=== PATIENT | male | born 1990 | race Caucasian/White ===

== ENCOUNTER 2019-06-25 16:26 | Outpatient (CLI) | payer OTHER, SELFPAY ==
--- NOTE | ~2019-06-25 | XR_ITS ---
EXAMINATION: XR lumbar spine 6V w bending DATE: 06/25/2019 17:05 INDICATION: Low back pain. TECHNIQUE: Anteroposterior, lateral in neutral, flexion and extension, and bilateral oblique views of the lumbar spine, and cone-down lateral view of the lumbosacral junction were obtained. COMPARISON: None. FINDINGS: Alignment is normal in the neutral and flexed standing positions. There is 3 mm retrolisthesis of L2 on L3 with extension. Minimal likely physiologic anterior wedging at T12 and L1. Disc heights are nor mal. No pars interarticularis defects. Mild lumbar facet osteoarthritis on the right at T12-L1 throug h L2-L3 and on the left at T12-L1, 1 L2, L3-L4 and L4-L5. Sacrum and bilateral sacroiliac joints are unremarkable. IMPRESSION: 1. Mild lumbar spondylosis and development of 3 mm retrolisthesis of L2 on L3 with extension. Reviewed, dictated and finalized at location A. IMPRESSION: 1. Mild lumbar spondylosis and development of 3 mm retrolisthesis of L2 on L3 w ith extension.
== END 2019-06-25 16:27 | disposition home or self-care (01) ==
PROVIDERS: PCP Internal Medicine; Visit Provider Physician Assistant
DX: M54.5 Low back pain (principal); M47.816 Spondylosis without myelopathy or radiculopathy, lumbar region; M43.16 Spondylolisthesis, lumbar region
CPT/HCPCS: 72114

== ENCOUNTER 2019-10-05 11:32 | Emergency (ER) | payer OTHER, SELFPAY ==
--- NOTE | ~2019-10-05 | XR_ITS ---
EXAMINATION: XR chest 2V DATE: 10/05/2019 11:59 INDICATION: Cough TECHNIQUE: PA and lateral views of the chest are obtained. COMPARISON: 07/26/2010 FINDINGS: The lungs are free of acute opacities. There is no pleural effusion or pneumothorax. The ca rdiomediastinal silhouette is normal. The visualized bones and soft tissues are unremarkable. IMPRESSION: 1. No acute cardiopulmonary abnormality. Reviewed, dictated and finalized at location A.
[2019-10-05 11:44] VITALS: BP 149/97; PULSE 87; RESP 12; TEMP 36.6; O2SAT 100
--- NOTE | 2019-10-05 11:47 | ED.URI ---
HPI - URI/Sore Throat General Chief Complaint: Upper Respiratory Infection Stated Complaint: cough/runny nose Source: patient Mode of arrival: ambulatory Limitations: no limitations History of Present Illness HPI Narrative: 29-year-old male presents to urgent care with complaints of productive cough, intermittent shortness of breath, wheezing, runny nose nasal congestion for the past 2 weeks. Patient reports that he did have a negative COVID test 2 weeks ago at onset of symptoms. Patient is a smoker. Patient denies sick contacts. Patient denies recent travel. Patient denies fever, body aches, chills, nausea, vomiting or diarrhea. Patient reports that he did take [id number] Benadryl and Claritin for 1 week which did help minimally. MD elicited complaint: cough Onset (ago): week(s) (2) Severity: mild Able to tolerate fluids by mouth: Yes Exacerbating factors: nothing Relieving factors: nothing Related Data Home Medications Medication Instructions Recorded Confirmed No Home Medications 10/05/19 10/05/19 Allergies Allergy/AdvReac Type Severity Reaction Status Date / Time buspirone Allergy Unknown Anxiety Verified 10/05/19 11:44 Review of Systems Constitutional: Constitutional: Denies chills, Denies fever(s) and Denies weakness ENT: Comments: Runny nose, nasal congestion Cardiovascular: Cardiovascular: Denies chest pain, Denies rapid heart rate, Denies radiating jaw, neck or arm pain and Denies slow heart rate Respiratory: Respiratory: Denies chest congestion, Reports cough, Reports dyspnea and Reports wheezing Gastrointestinal: Gastrointestinal: Denies abdominal pain, Denies diarrhea, Denies nausea and Denies vomiting Integumentary/Breasts: Skin/Breast: Denies rash Neurologic: Denies vertigo, Denies dizziness and Denies syncope PMFSH Family History Family History Sibling Asthma Social History Social History Smoking status: Current every day smoker Second hand tobacco smoke exposure: No Alcohol intake: never Substance use: former Substance use type: marijuana Exam Const: General: healthy appearing, no acute distress and alert Nutritional Appearance: well nourished Orientation/consciousness: patient oriented x3 HENMT: Head: normal to inspection Ears: external ears normal and TM's normal bilaterally Face and sinus: sinuses nontender and no sinus tenderness Mouth: Yes Normal oral and palatal mucosa present Throat: uvula midline Neck: Neck: no lymphadenopathy Resp: Effort & Inspection: normal respiratory effort, not labored and not tachypneic Auscultation: no crackles, no rales, no rhonchi and wheezes (Mild wheezing noted to left upper lobe) Cardio: Rate: regular rate Rhythm: regular rhythm Heart sounds: no murmurs Skin: General skin exam: normal color Rashes: no rashes Neuro: General: patient oriented x3, moves all extremities and no focal motor deficits Extrem: General: normal to inspection Psych: Appearance: grossly normal Mental Status: mental status grossly normal Affect: normal affect and Anxious affect present Attitude: cooperative Thought content: Yes Normal thought content present Course Vital Signs Vital signs: Vital Signs Temperature 36.6 C 10/05/19 11:44 Pulse Rate 87 10/05/19 11:44 Respiratory Rate 12 10/05/19 11:44 Blood Pressure 149/97 H 10/05/19 11:44 Pulse Oximetry 100 10/05/19 11:44 Temperature 36.6 C 10/05/19 11:44 Pulse Rate 87 10/05/19 11:44 Respiratory Rate 12 10/05/19 11:44 Blood Pressure 149/97 H 10/05/19 11:44 Pulse Oximetry 100 10/05/19 11:44 MDM - URI/Sore Throat MDM Narrative Medical decision making narrative: Chest x-ray results discussed with patient. Smoking cessation also discussed with patient. Patient agrees to take medications as prescribed. Patient agrees to continue Claritin daily.
== END 2019-10-05 12:22 | disposition home or self-care (01) ==
PROVIDERS: Emergency Provider Nurse Practitioner Family; PCP Internal Medicine
DX: J40 Bronchitis, not specified as acute or chronic (principal); F17.200 Nicotine dependence, unspecified, uncomplicated
CPT/HCPCS: 71046; 99213; G0463

== ENCOUNTER 2019-12-13 09:06 | Emergency (ER) | payer SELFPAY ==
[2019-12-13 09:13] VITALS: BP 123/88; PULSE 92; RESP 12; TEMP 36.6; O2SAT 100
--- NOTE | 2019-12-13 09:27 | ED.DIZZY ---
HPI - Dizziness General Chief Complaint: Dizziness Stated Complaint: DIZZY Time Seen by Provider: 12/13/19 09:25 Source: patient Mode of arrival: ambulatory Limitations: no limitations History of Present Illness HPI Narrative: Norberto Graff is a 29 yo male with no PMH who comes to express care with c/o ears feeling funny , dizziness. Started yesterday when he got dizzy and vomiting, hydtarte well and felt better yesterday. Today at work, same thing occurred. Patient states that he has been feeling stressed out about things in his life, he has a new job he is trying to buy a house he has been working out are sleeping and eating as much as he should, socializing too much but not using alcohol or drugs. He does smoke cigarettes a pack a day. Related Data Allergies Allergy/AdvReac Type Severity Reaction Status Date / Time buspirone Allergy Unknown Anxiety Verified 12/13/19 09:12 Review of Systems Review of Systems: Narrative: CONSTITUTIONAL: Denies fever, chills, sweats. EYES: Denies visual changes, redness, discharge. ENT: Denies rhinorrhea, congestion, sore throat, otalgia. CARDIOVASCULAR: Denies chest pain, palpitations, edema. RESPIRATORY: Denies dyspnea, wheezing, cough GASTROINTESTINAL: Denies abdominal pain, nausea, vomiting in morning x2 days, diarrhea. GENITOURINARY: Denies dysuria, hematuria, abnormal discharge SKIN: Denies rash or itching. NEUROLOGIC: Denies numbness, or focal weakness. Has dizziness PSYCHIATRIC: Denies anxiety or depression. PMFSH Past Medical History Medical History No active medical problems Family History Family History Sibling Asthma Social History Social History Smoking packs per day: 1.0 Smoking cigarettes per day: 20.0 Smoking status: Current every day smoker Second hand tobacco smoke exposure: No Alcohol intake: never Substance use: former Substance use type: marijuana Comments At time of signature, I agree with nursing past medical, surgical, social and family history. There is no relevant family history pertinent to the presenting complaint. Exam Narrative: Exam Narrative: GENERAL: This is a well-nourished, well-developed patient, in mild distress. HEAD: normocephalic, atraumatic. EYES: PERRL. Sclera clear/white. Vision is grossly intact. EARS: External ears normal, auditory canals clear -left canal has abrasion and TM appears to have a small hole, right canal and TM normal without perforation. Hearing grossly intact. NOSE: External nose normal without nasal discharge, nares without redness, no rhinorrhea. THROAT: Mucous membranes moist, posterior pharynx pink NECK: Neck supple, non-tender CARDIOVASCULAR: Regular rate and rhythm without murmurs, gallops, or rubs. RESPIRATORY: Clear to auscultation. Breath sounds equal bilaterally. No wheezes, rales, or rhonchi. GASTROINTESTINAL: Abdomen soft, SKIN: warm, intact with no suspicious lesions or rash, good texture and turgor. NEURO: awake, alert, and oriented to person, place and time. There were no obvious focal neurologic abnormalities. Steady gait EXTREMITIES: Normal range of motion. BACK: Nontender without deformity Course Course Emergency Course: Blood sugar was 97. Discussed nutrition hydration and exercise with patient Started on amoxicillin for left ear and given meclizine. Encouraged hydration, exercise for BPV Vital Signs Vital signs: Vital Signs Temperature 97.8 F 12/13/19 09:13 Pulse Rate 92 12/13/19 09:13 Respiratory Rate 12 12/13/19 09:13 Blood Pressure 123/88 12/13/19 09:13 Pulse Oximetry 100 12/13/19 09:13 Temperature 97.8 F 12/13/19 09:13 Pulse Rate 92 12/13/19 09:13 Respiratory Rate 12 12/13/19 09:13 Blood Pressure 123/88 12/13/19 09:13 Pulse Oximetry 100 12/13/19 09:13 MDM - D
[2019-12-13 09:28] LABS: Glucose Point of Care 97 (65-105)
== END 2019-12-13 10:05 | disposition home or self-care (01) ==
PROVIDERS: Emergency Provider Nurse Practitioner; PCP Internal Medicine
DX: H81.13 Benign paroxysmal vertigo, bilateral (principal); H66.92 Otitis media, unspecified, left ear; F17.210 Nicotine dependence, cigarettes, uncomplicated
CPT/HCPCS: 82948; 99213; G0463

== ENCOUNTER 2020-01-02 14:54 | Emergency (ER) | payer SELFPAY ==
[2020-01-02 15:02] VITALS: BP 117/80; PULSE 84; RESP 20; TEMP 36.3; O2SAT 100
--- NOTE | 2020-01-02 15:10 | ED.MALEGU ---
HPI - Male Genitourinary General Chief complaint: Urogenital-Male Stated complaint: std exposure Time Seen by Provider: 01/02/20 15:11 Source: patient and RN notes reviewed Mode of arrival: ambulatory Limitations: no limitations History of Present Illness HPI Narrative: 29-year-old male presents concern for exposure to STDs. Reports dysuria, penile discharge for 1 week. He denies fever, malaise, flank pain, urine frequency, urgency. Denies any lesions, open sores. MD Complaint: penile discharge Related Data Allergies Allergy/AdvReac Type Severity Reaction Status Date / Time buspirone Allergy Unknown Anxiety Verified 12/13/19 09:12 Review of Systems Review of Systems: Narrative: CONSTITUTIONAL: Denies malaise, chills, sweats, or fever. CARDIOVASCULAR: Denies chest pain, palpitations, or edema. RESPIRATORY: Denies cough or dyspnea. GASTROINTESTINAL: Denies abdominal pain, nausea, vomiting, diarrhea, bloody, or mucous stools. GENITOURINARY: Reports dysuria, penile discharge. Denies frequency, urgency, hematuria. SKIN: Denies open sores, lesions MUSCULOSKELETAL: Denies myalgia. NEUROLOGIC: Denies headache. All systems reviewed & are unremarkable except as noted in HPI and below PMFSH Past Medical History Medical History (Updated 01/02/20 @ 15:19 by Courtney Farley NP) No active medical problems Family History Family History Sibling Asthma Social History Social History Smoking packs per day: 1.0 Smoking cigarettes per day: 20.0 Smoking status: Current every day smoker Second hand tobacco smoke exposure: No Alcohol intake: never Substance use: former Substance use type: marijuana Comments At time of signature, agree with nursing past medical, surgical, social and family history. There is no relevant family history pertinent to the presenting complaint Exam Narrative: Exam Narrative: GENERAL: Well-appearing, well-nourished, and in no acute distress. HEAD: Normocephalic. EYES: PERRLA, conjunctivae clear. NECK: Supple. No lymphadenopathy CHEST: Clear to auscultation. No respiratory distress. HEART: Regular rate and rhythm. ABDOMEN: No CVA tenderness SKIN: Warm, dry, no rash. NEURO: Alert and oriented x3. PSYCH: Normal mood and affect Course Course Emergency Course: Patient is aware of diagnosis, understands and agrees to treatment plan. Anticipatory guidance given. Patient agrees to follow-up as directed and is aware of reasons to seek care at the emergency department. Portions of this record may have been created with voice recognition software Vital Signs Vital signs: Vital Signs Temperature 97.3 F L 01/02/20 15:02 Pulse Rate 84 01/02/20 15:02 Respiratory Rate 20 01/02/20 15:02 Blood Pressure 117/80 01/02/20 15:02 Pulse Oximetry 100 01/02/20 15:02 Temperature 97.3 F L 01/02/20 15:02 Pulse Rate 84 01/02/20 15:02 Respiratory Rate 20 01/02/20 15:02 Blood Pressure 117/80 01/02/20 15:02 Pulse Oximetry 100 01/02/20 15:02 Reviewed. MDM - Male Genitourinary MDM Narrative Medical decision making narrative: Exam findings show no acute concerns or changes; patient is non-toxic appearing and is in no distress. Patient is appropriate for outpatient treatment and follow-up. Differential Diagnosis Differential diagnosis: Likely urinary tract infection, urethritis and other (STD) Critical Care Time Critical Care Time Critical Care Time: No Discharge Plan Discharge Clinical Impression: Possible exposure to STD Patient Disposition: Home, Self-Care Condition: Stable Instructions: Antibiotic Form, Sexually Transmitted Diseases (ED) Additional Instructions: You have been tested and treated for potential Gonorrhea and Chlamydia today. You will recive a phone call in 2-3 days with the results of todays testing. It is very important that you avoi
[2020-01-02] MEDS: AZITHROMYCIN 250 MG TABLET 1000 MG PO (15:39)
[2020-01-02] MEDS: LIDOCAINE HCL 1% LOCAL INJ 20 ML VIAL INFILTRATE (15:39)
[2020-01-02] MEDS: cefTRIAXone 250 MG VIAL IM (15:39)
== END 2020-01-02 16:07 | disposition home or self-care (01) ==
PROVIDERS: Emergency Provider Nurse Practitioner; PCP Internal Medicine
DX: R30.0 Dysuria (principal); R36.9 Urethral discharge, unspecified; F17.210 Nicotine dependence, cigarettes, uncomplicated
CPT/HCPCS: 87491; 87591; 87661; 96372; 99213; A9270; G0463; J0696

== ENCOUNTER 2020-03-10 11:42 | Outpatient (CLI) | payer SELFPAY ==
[2020-03-10 12:16] LABS: Add Urine Microscopic? YES; Appearance Urine Clear (Clear); Bacteria Urine Trace /hpf; Bilirubin Urine Negative (Negative); Blood Urine Negative (Negative); Color Urine Straw (Yellow); Glucose Urine UA Negative (Negative); Ketones Urine Negative (Negative); Leukocyte Esterase Ur 2+ LEU/UL (NEGATIVE); Nitrate Urine Negative (Negative); Protein Urine Negative (Negative); RBC Urine 0-2 /hpf (0-2); Urobilinogen Urine Negative mg/dL (<2.0); WBC Urine 31-50 /hpf (0-3)
== END 2020-03-10 11:43 | disposition home or self-care (01) ==
LOC: ANHLAB 11:44
PROVIDERS: PCP Internal Medicine; Visit Provider Physician Assistant
DX: R30.0 Dysuria (principal)
CPT/HCPCS: 81001; 87086; 87491; 87591

== ENCOUNTER 2020-10-06 15:03 | Emergency (ER) | payer SELFPAY ==
[2020-10-06 15:10] VITALS: BP 125/63; PULSE 93; RESP 12; TEMP 36.7; O2SAT 99
--- NOTE | 2020-10-06 15:51 | ED.ABDPAIN ---
HPI - Abdominal Pain General Chief Complaint: Urogenital-Male Stated Complaint: abdominal pain/POS UTI Time Seen by Provider: 10/06/20 15:34 Source: patient and RN notes reviewed Mode of arrival: ambulatory Limitations: no limitations History of Present Illness HPI narrative: Patient presents today complaining of left sided abdominal pain x3 days with feelings of swelling to the abdomen that have been constant. He also reports some dysuria and chills. Denies nausea, vomiting, fever, hematuria. Currently rates his pain 6/10 and has tried no medication for symptoms prior to arrival. No history of kidney stones or pyelonephritis. Denies concerns for sexually transmitted infections. MD elicited complaint: abdominal pain Related Data Allergies Allergy/AdvReac Type Severity Reaction Status Date / Time buspirone Allergy Unknown Anxiety Verified 10/06/20 15:14 Review of Systems Review of Systems: Narrative: CONSTITUTIONAL: Denies body aches, fever, sweats.+ Chills EYES: Denies visual changes, redness, or discharge. ENT: Denies rhinorrhea, congestion, sore throat, or otalgia. CARDIOVASCULAR: Denies chest pain, palpitations, or edema. RESPIRATORY: Denies cough or dyspnea. GASTROINTESTINAL: Denies nausea, vomiting, or diarrhea+ abdominal pain and swelling. GENITOURINARY: Denies hematuria.+ Dysuria SKIN: Denies rash, itching, or wounds. MUSCULOSKELETAL: Denies back pain, joint pain, or myalgia. NEUROLOGIC: Denies headache, numbness, tingling, or weakness. PSYCH: Denies depression or anxiety. [facility] Past Medical History Medical History No active medical problems Family History Family History Sibling Asthma Social History Social History Smoking packs per day: 1.0 Smoking cigarettes per day: 20.0 Smoking status: Current every day smoker Second hand tobacco smoke exposure: No Alcohol intake: never Substance use: former Substance use type: marijuana Comments At time of signature, I have reviewed and agree with nursing past medical, surgical, social and family history unless otherwise noted. Please see nursing chart for further information. There is no relevant family history pertinent to the presenting complaint Exam Narrative: Exam Narrative: GENERAL: Well-appearing, well-nourished, and in no acute distress. HEAD: Normocephalic, atraumatic. EYES: EOMI. No redness or drainage. Conjunctivae normal. ENT: Mucous membranes pink and moist. NECK: Normal AROM. Supple. No lymphadenopathy. CHEST: No respiratory distress. Clear to auscultation. HEART: Regular rate and rhythm. No murmur appreciated. Normal peripheral pulses. ABDOMEN: Soft, nondistended, normal active bowel sounds.+ Left lower quadrant tenderness without rebound or guarding. MUSCULOSKELETAL: No bony tenderness. EXTREMITIES: Normal range of motion. No edema. SKIN: Warm, dry, no rash. Capillary refill normal. Normal skin turgor. NEURO: No focal deficits. Alert and oriented x3. Gait steady. PSYCH: Normal affect. No signs of depression or anxiety. Course Course Emergency Course: Recommended to patient that he go to the ER for further evaluation of his 3 days of abdominal pain with urinary symptoms. Patient is A&O x4 on not under the influence of any drugs or alcohol, unable to make his own medical decisions. He is leaving AGAINST MEDICAL ADVICE. He will sign AMA paperwork. Vital Signs Vital signs: Vital Signs Temperature 98.0 F 10/06/20 15:10 Pulse Rate 93 10/06/20 15:10 Respiratory Rate 12 10/06/20 15:10 Blood Pressure 125/63 10/06/20 15:10 Pulse Oximetry 99 10/06/20 15:10 Temperature 98.0 F 10/06/20 15:10 Pulse Rate 93 10/06/20 15:10 Respiratory Rate 12 10/06/20 15:10 Blood Pressure 125/63 10/06/20 15:10 Pulse Oximetry 99
== END 2020-10-06 15:59 | disposition left against medical advice (07) ==
PROVIDERS: Emergency Provider Nurse Practitioner; PCP Internal Medicine
DX: R30.0 Dysuria (principal); R10.814 Left lower quadrant abdominal tenderness; F17.210 Nicotine dependence, cigarettes, uncomplicated
CPT/HCPCS: 81003; 87086; 99213; G0463

== ENCOUNTER 2020-10-15 13:06 | Emergency (ER) | payer OTHER, SELFPAY ==
[2020-10-15 13:20] VITALS: BP 130/81; PULSE 81; RESP 17; TEMP 36.8; O2SAT 98
--- NOTE | 2020-10-15 13:25 | ED.GENADULT ---
HPI - General Adult General Chief complaint: Urogenital-Male Stated complaint: std exposure Time Seen by Provider: 10/15/20 13:25 Source: patient and RN notes reviewed Mode of arrival: ambulatory Limitations: no limitations History of Present Illness HPI narrative: 30-year-old male presents with complaints of positive STI testing of gonorrhea and chlamydia for the past 7 days. Norberto reports testing positive at [facility] on Wednesday October 07, 2020. Dysuria consists of burning, itching, bilateral groin pain, and yellow cloudy discharge. No treatment. History of Chlamydia December 2019. Denies fever but has had intermittent chills. Denies nausea, vomiting, and abdominal pain. No significant penile pain. Concern for STDs due to history of unprotected intercourse. Denies unprotected intercourse with multiple partners. No flank pain. Exacerbating factors urinating. Denies or unusual penile bleeding. Tolerating liquids well. Remains active. The patient reports he has not been diagnosed with COVID-19. The patient reports he is not waiting for the results of a COVID-19 lab test. The patient reports he does not have weakness, fatigue, or myalgia. The patient reports he does not have a new or worsening cough or shortness of breath. The patient reports he does not have any rhinorrhea, congestion, loss of taste or smell, sore throat, and diarrhea. Denies recent traveling. Denies concerns for COVID-19 or exposures. At this time, the patient is not suspected of having COVID-19. Some parts of this dictation were generated by voice recognition software and may contain typographical and/or grammatical inaccuracies. Related Data Allergies Allergy/AdvReac Type Severity Reaction Status Date / Time buspirone Allergy Unknown Anxiety Verified 10/15/20 13:19 Review of Systems Review of Systems: CONSTITUTIONAL: Denies fever, sweats. Complaints of intermittent chills. EYES: Denies visual changes, redness, discharge. ENT: Denies rhinorrhea, congestion, sore throat, otalgia. CARDIOVASCULAR: Denies chest pain, palpitations, edema. RESPIRATORY: Denies dyspnea, wheezing, cough. GASTROINTESTINAL: Denies abdominal pain, nausea, vomiting, diarrhea. GENITOURINARY: Denies hematuria. Complaints of positive results for Gonorrhea and Chlamydia, genital discharge, bilateral groin pain, and dysuria. SKIN: Denies rash or itching. MUSCULOSKELETAL: Denies acute back pain, joint pain, or myalgia. NEUROLOGIC: Denies numbness or focal weakness. PSYCHIATRIC: Denies anxiety or depression. All systems reviewed & are unremarkable except as noted in HPI and below. [facility] Past Medical History Medical History Chlamydia infection Tobacco use Surgical History Surgical History (Updated 10/15/20 @ 14:14 by LEONOR Talamantes) No significant past surgical history Family History Family History (Updated 10/15/20 @ 14:15 by LEONOR Talamantes) Sibling Asthma Father Hypertension Mother Lupus Social History Social History (Updated 10/15/20 @ 14:16 by LEONOR Talamantes) Smoking packs per day: 1.0 Smoking cigarettes per day: 20.0 Years smoked: 11 Smoking pack-years: 11.00 Smoking status: Current every day smoker Tobacco type: cigarettes Second hand tobacco smoke exposure: No Alcohol intake: never Substance use: former Substance use type: marijuana Living arrangements: with family Occupation/Education: unemployed Gender identity (if verbalized by the patient): Male Sexual Orientation (if Verbalized by the Patient): Straight or Heterosexual Comments At time of signature, agree with the nurse past medical, surgical, social, and family history. There is relevant patient's history pertinent to the presenting complaint, no relevant family history pertinent to the presenting complaint. Exam Narrative: GENERAL: This is a well-nourished, well-developed patient, in no apparent distress. Talks in full sentences a
[2020-10-15] MEDS: cefTRIAXone 250 MG VIAL 500 MG IM (13:58)
[2020-10-15] MEDS: LIDOCAINE HCL 1% LOCAL INJ 20 ML VIAL INFILTRATE (13:58)
== END 2020-10-15 14:07 | disposition home or self-care (01) ==
PROVIDERS: Emergency Provider Nurse Practitioner Family; PCP Internal Medicine
DX: A64 Unspecified sexually transmitted disease (principal); F17.210 Nicotine dependence, cigarettes, uncomplicated
CPT/HCPCS: 96372; 99213; G0463; J0696

== ENCOUNTER 2020-12-19 08:50 | Emergency (ER) | payer OTHER, SELFPAY ==
[2020-12-19 08:53] VITALS: BP 156/93; PULSE 92; RESP 16; TEMP 36.6; O2SAT 100
[2020-12-19 09:09] LABS: Basophils Percent Auto 0.4 % (0.2-1.2); Eosinophils Absolute Auto 0.2 K/mm3 (0-0.3); Eosinophils Percent Auto 1.8 % (0-4.4); Hematocrit 45.9 % (42.0-52.0); Hemoglobin 15.1 g/dL (14.0-18.0); Immature Granulocyte Absolute 0.02 K/mm3 (0.00-0.031); Immature Granulocyte Percent A 0.2 % (0-0.5); Lymphocytes Absolute Auto 1.47 K/mm3 (0.9-3.2); Lymphocytes Percent Auto 15.7 % (18.3-44.2); Mean Corpuscular HGB Conc 32.9 g/dl (32-36); Mean Corpuscular Hemoglobin 28.1 pg (26-34); Mean Corpuscular Volume 85.5 fl (80-100); Monocytes Absolute Auto 0.9 K/mm3 (0.1-0.6); Monocytes Percent Auto 9.3 % (2.6-8.5); Neutrophils Absolute Auto 6.8 K/mm3 (1.3-6.7); Neutrophils Percent Auto 72.6 % (45.5-73.1); Platelet Count Result 270 k/mm3 (150-375); Red Blood Count 5.37 M/mm3 (4.6-6.20); White Blood Count 9.4 K/mm3 (4.5-10.0)
[2020-12-19 09:25] LABS: Alanine Aminotransferase 30 U/L (4-50); Albumin Level 4.9 g/dL (3.5-5.1); Alkaline Phosphatase 82 U/L (38-126); Anion Gap 8 mmol/L (8-16); Aspartate Amino Transferase 34 U/L (17-59); Bilirubin,Total 0.3 mg/dL (0.2-1.3); Blood Urea Nitrogen 14 mg/dL (9-20); Calcium 9.3 mg/dL (8.4-10.2); Carbon Dioxide 29 mmol/L (22-30); Chloride 103 mmol/L (98-107); Estimated CRCL calculation 98 ml/min; Estimated Glomerular Filt Rate > 60; Glucose 100 mg/dL (65-110); Lipase 78 U/L (23-300); Potassium 3.9 mmol/L (3.4-5.0); Sodium 140 mmol/L (137-145)
--- NOTE | 2020-12-19 09:45 | ED.ABDPAIN ---
HPI - Abdominal Pain General Chief Complaint: Nausea/Vomiting/Diarrhea Stated Complaint: abd pain Time Seen by Provider: 12/19/20 09:01 Source: patient Mode of arrival: ambulatory Limitations: no limitations History of Present Illness HPI narrative: Patient complaining of diffuse abdominal cramps that started 2 days ago. Associated with a lot of diarrhea. Limited count, watery stool. Patient also reports some chills, denies any fever. Patient reports upper respiratory symptoms got better on Benadryl, history of seasonal allergy. Currently patient have no respiratory symptoms. Patient is not vaccinated for COVID-19. Related Data Allergies Allergy/AdvReac Type Severity Reaction Status Date / Time buspirone Allergy Unknown Anxiety Verified 12/19/20 08:54 Review of Systems Review of Systems: CONSTITUTIONAL: Denies fever, chills, or sweats. EYES: Denies visual changes, redness, or discharge. ENT: Denies rhinorrhea, congestion, sore throat, or otalgia. CARDIOVASCULAR: Denies chest pain, palpitations, or edema. RESPIRATORY: Denies cough or dyspnea. GASTROINTESTINAL: Denies abdominal pain, nausea, vomiting, or diarrhea. GENITOURINARY: Denies dysuria or hematuria. SKIN: Denies rash or itching. MUSCULOSKELETAL: Denies back pain, joint pain, or myalgia. NEUROLOGIC: Denies headache, numbness, or weakness. PSYCHIATRIC: Denies anxiety or depression. PMFSH Past Medical History Medical History Chlamydia infection Tobacco use Surgical History Surgical History No significant past surgical history Family History Family History Sibling Asthma Father Hypertension Mother Lupus Social History Social History Smoking packs per day: 1.0 Smoking cigarettes per day: 20.0 Years smoked: 11 Smoking pack-years: 11.00 Smoking status: Current every day smoker Tobacco type: cigarettes Second hand tobacco smoke exposure: No Alcohol intake: never Substance use: former Substance use type: marijuana Gender identity (if verbalized by the patient): Male Sexual Orientation (if Verbalized by the Patient): Straight or Heterosexual Exam Narrative: General appearance: Well-developed, well-nourished Skin: Normal color Head: Normocephalic, nontraumatic Eyes: Clear conjunctiva ENT: Oropharynx normal, ears normal, nose normal Neck: Supple, nontender Chest and respiratory: Airway patent, no respiratory distress, no accessory muscle use Heart: Regular rate/rhythm Abdomen: Soft, no tenderness, no guarding or rebound, no organomegaly, active bowel sounds Vascular: Normal peripheral pulses, normal capillary refill. Musculoskeletal: Normal range of motion, nontender back Neurologic: Alert and oriented ?3, [employer] is normal as tested, no gross motor deficit Course Course Emergency Course: Stable, improving Vital Signs Vital signs: Vital Signs Temperature 36.6 C 12/19/20 08:53 Pulse Rate 92 12/19/20 08:53 Respiratory Rate 16 12/19/20 08:53 Blood Pressure 156/93 H 12/19/20 08:53 Pulse Oximetry 100 12/19/20 08:53 Temperature 36.6 C 12/19/20 08:53 Pulse Rate 92 12/19/20 08:53 Respiratory Rate 16 12/19/20 08:53 Blood Pressure 156/93 H 12/19/20 08:53 Pulse Oximetry 100 12/19/20 08:53 MDM - Abdominal Pain MDM Narrative Medical decision making narrative: Viral gastroenteritis is my concern. Patient is not vaccinated for COVID-19. Labs, IV fluid, Covid test ordered. Differential Diagnosis Differential diagnosis: Likely gastroenteritis Lab Data Result diagr
[2020-12-19] MEDS: SODIUM CHLORIDE 0.9% IV 1,000 ML 999 ML IV CONT ×2 (10:35→10:54)
[2020-12-19 10:39] LABS: Add Urine Microscopic? YES; Appearance Urine Clear (Clear); Bilirubin Urine Negative (Negative); Blood Urine 1+ (Negative); Color Urine Yellow (Yellow); Glucose Urine UA Negative (Negative); Ketones Urine Negative (Negative); Leukocyte Esterase Ur Negative LEU/UL (Negative); Mucus Urine Few /lpf; Nitrate Urine Negative (Negative); Protein Urine Negative (Negative); Specific Grav Ur 1.025 (1.001-1.035); Urobilinogen Urine Negative mg/dL (<2.0); WBC Urine 0-3 /hpf
[2020-12-19 11:31] VITALS: BP 120/74; PULSE 83; RESP 16; TEMP 36.6; O2SAT 99
[2020-12-19 17:41] LABS: SARS-CoV-2 RNA PCR Negative
== END 2020-12-19 11:31 | disposition home or self-care (01) ==
PROVIDERS: Emergency Provider Emergency Medicine; PCP Internal Medicine
DX: R19.7 Diarrhea, unspecified (principal); Z20.822 Contact with and (suspected) exposure to COVID-19; F17.210 Nicotine dependence, cigarettes, uncomplicated
CPT/HCPCS: 36415; 80053; 81001; 83690; 85025; 96360; 99283; C9803; J7030; U0003; U0005

== ENCOUNTER 2021-01-19 15:29 | Emergency (ER) | payer SELFPAY ==
--- NOTE | 2021-01-19 15:40 | ED.SKABFB ---
HPI - Skin/Abscess/Foreign Bdy General Chief complaint: Skin/Abscess/Foreign Body Stated complaint: rash Time Seen by Provider: 01/19/21 15:34 Source: patient, RN notes reviewed and old records reviewed Mode of arrival: ambulatory Limitations: no limitations History of Present Illness HPI narrative: 30-year-old male presents to the [facility] with complaints of a rash to the pubic area. Started about a week ago, became worse and more itchy today. Patient reports that his girlfriend has a similar rash to her genitals. States that his girlfriend and him meet shelter between where she lives in here at some cheap motels. No treatment prior to arrival. Related Data Allergies Allergy/AdvReac Type Severity Reaction Status Date / Time buspirone Allergy Unknown Anxiety Verified 12/24/20 16:07 Review of Systems Review of Systems: All systems reviewed & are unremarkable except as noted in HPI and below Constitutional: Constitutional: Reports no additional constitutional complaints, Denies chills and Denies fever(s) Eyes: Eyes: Reports no additional eye complaints ENT: Reports system reviewed and no additional complaints, except as documented Cardiovascular: Cardiovascular: Reports no additional cardiovascular complaints and Denies chest pain Respiratory: Respiratory: Reports no additional respiratory complaints and Denies cough Gastrointestinal: Gastrointestinal: Reports no additional gastrointestinal complaints, Denies abdominal pain, Denies nausea and Denies vomiting Genitourinary: Genitourinary: Reports as per HPI (Rash) Integumentary/Breasts: Skin/Breast: Reports as per HPI (Genital area rash) Neurologic: Reports system reviewed and no additional complaints, except as documented Psychiatric: Psychiatric: Reports no additional psychiatric complaints Allergic/Immunologic: Allergic/Immunologic: Reports no additional allergic/immunologic complaints [facility] Past Medical History Medical History Chlamydia infection Tobacco use Surgical History Surgical History No significant past surgical history Family History Family History Sibling Asthma Father Hypertension Mother Lupus Social History Social History Smoking packs per day: 1.0 Smoking cigarettes per day: 20.0 Years smoked: 11 Smoking pack-years: 11.00 Smoking status: Current every day smoker Tobacco type: cigarettes Second hand tobacco smoke exposure: No Alcohol intake: never Substance use: former Substance use type: marijuana Gender identity (if verbalized by the patient): Male Sexual Orientation (if Verbalized by the Patient): Straight or Heterosexual Comments At the time of my signature, I reviewed and agree with the nursing past medical, surgical, social, and family history. There is no relevant family history pertinent to the patient complaint. Exam Const: General: healthy appearing, no acute distress and alert Nutritional Appearance: well nourished and thin Orientation/consciousness: patient oriented x3 Limitations: no limitations HENMT: Head: normal to inspection Eyes: Conjunctivae: conjunctivae normal Pupils: Equal, round and reactive pupils present Neck: Neck: normal visual inspection, no lymphadenopathy and no meningeal signs Chest: Chest palpation & inspection: normal inspection of the chest Resp: Effort & Inspection: normal respiratory effort and no use of accessory muscles Auscultation: clear to auscultation bilaterally, no crackles, no rales, no rhonchi and no wheezes Cardio: Rate: regular rate Rhythm: regular rhythm GI: GI Palp: Yes Soft to palpation, No Tenderness to palpation present (GI), No Guarding due to palpation present (GI) and No Rigid due to palpation : Scrotum: scrotum normal Testes: no testicular swelling and no testicular tenderness Other: Ra
== END 2021-01-19 15:49 | disposition home or self-care (01) ==
PROVIDERS: Emergency Provider Nurse Practitioner; PCP Internal Medicine
DX: B85.3 Phthiriasis (principal); F17.219 Nicotine dependence, cigarettes, with unspecified nicotine-induced disorders
CPT/HCPCS: 99213; G0463

== ENCOUNTER 2022-02-24 11:35 | Emergency (ER) | payer OTHER, SELFPAY ==
[2022-02-24 11:45] VITALS: BP 112/74; PULSE 74; RESP 16; TEMP 36.7; O2SAT 100
--- NOTE | 2022-02-24 11:46 | ED.MALEGU ---
HPI - Male Genitourinary General Chief complaint: Urogenital-Male Stated complaint: std check Time Seen by Provider: 02/24/22 11:46 Source: patient Mode of arrival: ambulatory Limitations: no limitations History of Present Illness HPI Narrative: Mr. Graff is a 31-year-old male patient presenting to the clinic today for STD testing. He reports that his girlfriend tested positive for Trichomonas last week and he is wanting treatment today. Related Data Allergies Allergy/AdvReac Type Severity Reaction Status Date / Time buspirone Allergy Unknown Anxiety Verified 02/24/22 11:50 Review of Systems Review of Systems: Pertinent positives per HPI. Patient denies any fever, chills, rash, headache, visual changes, dizziness, cough, runny nose, sore throat, shortness of breath, chest pain, palpitations, nausea, vomiting, diarrhea, constipation, abdominal pain, or any urinary issues. PMFSH Past Medical History Medical History Chlamydia infection Tobacco use Surgical History Surgical History No significant past surgical history Family History Family History Sibling Asthma Father Hypertension Mother Lupus Social History Social History Smoking packs per day: 1.0 Smoking cigarettes per day: 20.0 Years smoked: 11 Smoking pack-years: 11.00 Smoking status: Current every day smoker Tobacco type: cigarettes Second hand tobacco smoke exposure: No Alcohol intake: never Substance use: former Substance use type: marijuana Gender identity (if verbalized by the patient): Male Sexual Orientation (if Verbalized by the Patient): Straight or Heterosexual Comments At the time of my signature, I reviewed and agree with the nursing past medical, surgical, social, and family history. There is no relevant family history pertinent to the patient complaint. Exam Narrative: General: Well-developed, well nourished, in no apparent distress. Head: Normocephalic, atraumatic. Cardio: Regular rate and rhythm, s1 and s2 normal, no murmur appreciated. Resp: Clear to auscultation bilaterally, no rhonchi, rales, wheezing or rubs. Abdomen: Soft, pliable, bowel sounds present in all quadrants, non-tender to palpation, no organomegly, no CVAT tenderness. : Deferred Course Course Emergency Course: Portions of this record may have been created with voice recognition software. Level of Care: Express Care Visit Vital Signs Vital signs: Vital Signs Temperature 36.7 C 02/24/22 11:45 Pulse Rate 74 02/24/22 11:45 Respiratory Rate 16 02/24/22 11:45 Blood Pressure 112/74 02/24/22 11:45 Pulse Oximetry 100 02/24/22 11:45 Oxygen Delivery Room Air 02/24/22 11:45 Temperature 36.7 C 02/24/22 11:45 Pulse Rate 74 02/24/22 11:45 Respiratory Rate 16 02/24/22 11:45 Blood Pressure 112/74 02/24/22 11:45 Pulse Oximetry 100 02/24/22 11:45 Oxygen Delivery Room Air 02/24/22 11:45 Vital signs reviewed MDM - Male Genitourinary MDM Narrative Medical decision making narrative: At the time of visit patient is resting comfortably on the exam table. Prescription for metronidazole 2 g sent to the pharmacy. Supportive measures were discussed with the patient and he voiced understanding Differential Diagnosis Differential diagnosis: Likely other (STD exposure, trichomonas) Discharge Plan Discharge Clinical Impression: Trichomonas exposure Patient Disposition: Home, Self-Care Condition: Stable Instructions: Antibiotic Form, Trichomoniasis (ED) Additional Instructions: Take metronidazole as prescribed Avoid sexual intercourse x1 week to be sure that you and your partners medication has worked and your medication has treated the Trichomonas Follow-up with your PCP as needed Prescriptions: New
== END 2022-02-24 11:58 | disposition home or self-care (01) ==
PROVIDERS: Emergency Provider Nurse Practitioner Family; PCP Internal Medicine
DX: Z20.2 Contact with and (suspected) exposure to infections with a predominantly sexual mode of transmission (principal); F17.210 Nicotine dependence, cigarettes, uncomplicated
CPT/HCPCS: 99213; G0463

== ENCOUNTER 2022-09-24 19:21 | Emergency (ER) | payer OTHER, SELFPAY ==
--- NOTE | 2022-09-24 19:28 | ED.MALEGU ---
HPI - Male Genitourinary General Chief complaint: Urogenital-Male Stated complaint: PELVIC PRESSURE/WANTS STD TEST Time Seen by Provider: 09/24/22 19:23 Source: patient Mode of arrival: ambulatory Limitations: no limitations History of Present Illness HPI Narrative: Patient is a 32-year-old male that presents pelvic pressure since Tuesday. Requesting STD testing. Patient states he has had gonorrhea, chlamydia, Trichomonas in the past. Last treatment was last year. Patient states he has some burning with urination, intermittent in low back pain and itchy feeling on the tip of his penis. Denies any penile discharge, testicular pain, painful ejaculation, fever, chills, nausea, vomiting. Denies any known exposures. Related Data Allergies Allergy/AdvReac Type Severity Reaction Status Date / Time buspirone Allergy Unknown Anxiety Verified 09/24/22 19:35 Review of Systems Review of Systems: All systems reviewed & are unremarkable except as noted in HPI and below Constitutional: Constitutional: Denies body ache(s), Denies chills, Denies fatigue, Denies fever(s), Denies headache(s), Denies malaise and Denies weakness Eyes: Eyes: Denies blurry vision, Denies irritation and Denies loss of vision ENT: Denies otalgia, Denies headache(s), Denies nasal discharge, Denies sinus pain and Denies sore throat Cardiovascular: Cardiovascular: Denies chest pain, Denies irregular heart rhythm and Denies dyspnea Respiratory: Respiratory: Denies dyspnea Gastrointestinal: Gastrointestinal: Denies abdominal pain, Denies melena, Denies hematochezia, Denies diarrhea, Denies nausea and Denies vomiting Genitourinary: Genitourinary: Denies hematuria, Reports oliguria, Denies genital lesions, Reports dysuria, Denies painful ejaculations, Denies penile discharge, Denies scrotal swelling, Denies testicular pain and Reports urinary hesitancy Musculoskeletal: Musculoskeletal: Denies back pain, Denies myalgias and Denies arthralgias Integumentary/Breasts: Skin/Breast: Denies pruritus and Denies rash Neurologic: Denies headache(s), Denies loss of vision and Denies weakness Psychiatric: Psychiatric: Reports no additional psychiatric complaints Endocrine: Endocrine: Denies fatigue PMFSH Past Medical History Medical History Chlamydia infection Tobacco use Surgical History Surgical History No significant past surgical history Family History Family History Sibling Asthma Father Hypertension Mother Lupus Social History Social History Smoking packs per day: 1.0 Smoking cigarettes per day: 20.0 Years smoked: 11 Smoking pack-years: 11.00 Smoking status: Current every day smoker Tobacco type: cigarettes Second hand tobacco smoke exposure: No Alcohol intake: never Substance use: former Substance use type: marijuana Living arrangements: with family Occupation/Education: unemployed Gender identity (if verbalized by the patient): Male Sexual Orientation (if Verbalized by the Patient): Straight or Heterosexual Comments At time of signature, agree with nursing past medical, surgical, social and family history. There is no relevant family history pertinent to the presenting complaint. Exam Const: General: cooperative, healthy appearing, comfortable, no acute distress and well nourished Nutritional Appearance: well nourished Orientation/consciousness: patient oriented x3 Limitations: no limitations HENMT: Head: normal to inspection, normocephalic and atraumatic Ears: hearing grossly normal bilaterally and external ears normal Face/Nose/Sinus: Normal external nose present, normal facial exam and face symmetric Face and sinus: normal facial exam and face symmetric Mouth: Yes lip normal Eyes: General: appearance normal, both eyes and all related structure
[2022-09-24 19:29] VITALS: BP 131/93; PULSE 87; RESP 16; TEMP 36.6; O2SAT 99
[2022-09-24] MEDS: cefTRIAXone 500 MG, LIDOCAINE HCL 1% LOCAL INJ 1 ML IM (19:50)
== END 2022-09-24 19:55 | disposition home or self-care (01) ==
PROVIDERS: Emergency Provider Nurse Practitioner Family; PCP Internal Medicine
DX: R10.2 Pelvic and perineal pain (principal); R30.0 Dysuria; M54.50 Low back pain, unspecified; F17.210 Nicotine dependence, cigarettes, uncomplicated
CPT/HCPCS: 81003; 87491; 87591; 87661; 96372; 99213; G0463; J0696

== ENCOUNTER 2023-04-29 19:24 | Emergency (ER) | payer OTHER, SELFPAY ==
[2023-04-29 19:33] VITALS: BP 130/100; PULSE 93; RESP 16; TEMP 36.5; O2SAT 99
[2023-04-29 19:35] VITALS: BP 130/100; PULSE 93; RESP 16; TEMP 36.5; O2SAT 99
--- NOTE | 2023-04-29 19:39 | ED.MALEGU ---
HPI - Male Genitourinary General Chief complaint: Urogenital-Male Stated complaint: PELVIC PAIN/WANTS STD TESTING Source: patient and RN notes reviewed Mode of arrival: ambulatory Limitations: no limitations History of Present Illness HPI Narrative: 32 y/o male presented for concern for STD. Endorses left lower abdominal pain radiating across the lower abdomen x4 days. Also reports painful urination and dribbling at the end of stream. Endorses unprotected sex with new partner, who now has a sore throat. Hx STDs. Denies urethral discharge, testicular pain/swelling, rash/lesions, Denies n/v/d/f/c. LBM today, normal. Related Data Allergies Allergy/AdvReac Type Severity Reaction Status Date / Time buspirone Allergy Unknown Anxiety Verified 04/29/23 19:31 Review of Systems Review of Systems: CONSTITUTIONAL: Denies body aches, fever, chills, or sweats. CARDIOVASCULAR: Denies chest pain, palpitations, or edema. RESPIRATORY: Denies cough or dyspnea. GASTROINTESTINAL: Reports lower abdominal pain, denies nausea, vomiting, or diarrhea. GENITOURINARY: Reports dysuria, denies discharge, frequency, urgency, hematuria, flank pain SKIN: Denies rash, itching MUSCULOSKELETAL: Denies back pain or myalgia. [facility] Past Medical History Medical History Chlamydia infection Tobacco use Surgical History Surgical History No significant past surgical history Family History Family History Sibling Asthma Father Hypertension Mother Lupus Social History Social History Smoking packs per day: 1.0 Smoking cigarettes per day: 20.0 Years smoked: 11 Smoking pack-years: 11.00 Smoking status: Current every day smoker Tobacco type: cigarettes Second hand tobacco smoke exposure: No Alcohol intake: never Substance use: former Substance use type: marijuana Living arrangements: with family Occupation/Education: unemployed Gender identity (if verbalized by the patient): Male Sexual Orientation (if Verbalized by the Patient): Straight or Heterosexual Comments At time of signature, I have reviewed and agree with nursing past medical, surgical, social and family history unless otherwise noted. Please see nursing chart for further information. There is no relevant family history pertinent to the presenting complaint Exam Narrative: GENERAL: Well-appearing ENT: Mucous membranes pink and moist. NECK: Normal AROM. Supple. CHEST: No respiratory distress. Clear to auscultation. HEART: Regular rate and rhythm. ABDOMEN: Soft, nondistended, normal active bowel sounds. Mildly tender LLQ with palpation. No CVA tenderness SKIN: Warm, dry, no rash. NEURO: No focal deficits. Alert and oriented x3. Gait steady. PSYCH: Normal affect. Course Course Emergency Course: Patient is aware of diagnosis, understands and agrees to treatment plan. Anticipatory guidance given. Patient agrees to follow-up as directed and is aware of reasons to seek care at the emergency department. Portions of this record may have been created with voice recognition software Level of Care: Express Care Visit Vital Signs Vital signs: Vital Signs Temperature 97.7 F 04/29/23 19:33 Pulse Rate 93 04/29/23 19:33 Respiratory Rate 16 04/29/23 19:33 Blood Pressure 130/100 H 04/29/23 19:33 Pulse Oximetry 99 04/29/23 19:33 Temperature 97.7 F 04/29/23 19:35 Pulse Rate 93 04/29/23 19:35 Respiratory Rate 16 04/29/23 19:35 Blood Pressure 130/100 H 04/29/23 19:35 Pulse Oximetry 99 04/29/23 19:35 Reviewed MDM - Male Genitourinary MDM Narrative Medical decision making narrative: Patient presenting with concern for STD. Urine specimen collected for GC, chlamydia, trich. Informed Pt will be contacted w/ results when they become available if th
[2023-04-29] MEDS: cefTRIAXone 500 MG, LIDOCAINE HCL 1% LOCAL INJ 1 ML IM (19:55)
[2023-04-30 17:20] LABS: Trichomonas Vag PCR NOT DETECTED (NOT DETECTE)
[2023-04-30 17:45] LABS: Chlamydia trachomatis NOT DETECTED (NOT DETECTE); Neisseria gonorrhoeae PCR NOT DETECTED (NOT DETECTE)
== END 2023-04-29 20:06 | disposition home or self-care (01) ==
PROVIDERS: Emergency Provider Nurse Practitioner Family; PCP Internal Medicine
DX: Z20.2 Contact with and (suspected) exposure to infections with a predominantly sexual mode of transmission (principal); F17.210 Nicotine dependence, cigarettes, uncomplicated
CPT/HCPCS: 81003; 87491; 87591; 87661; 96372; 99213; G0463; J0696

== ENCOUNTER 2023-05-24 11:18 | Outpatient (CLI) | payer OTHER, SELFPAY ==
--- NOTE | ~2023-05-24 | CT_ITS ---
Non-contrast CT scan of the Abdomen and Pelvis Clinical indication: Abdominal pain Technique: 2.5 mm axial scans were obtained through the abdomen and pelvis without intravenous or or al contrast. Dose reduction technique was used on this scan by utilizing automated exposure control a nd iterative reconstruction technique. The dose-length product (DLP) was 380.50 mGy-cm. Findings: Images through the lung bases reveal no abnormalities. There is no evidence of renal or ureteral calculi. The kidneys and the ureters are nondilated. The liver, spleen, pancreas, gallbladder, and adrenals appear normal. There is no aortic aneurysm. There is no evidence of bowel obstruction. Normal appendix. Images through the pelvis were performed. There is no evidence of ascites or lymphadenopathy. Urinary bladder unremarkable. No pelvic mass seen. Impression: No significant abnormality seen. Reviewed, dictated and finalized at [facility]. Impression: No significant abnormality seen.
== END 2023-05-24 11:19 ==
LOC: MICIMG 11:19
PROVIDERS: PCP Internal Medicine; Visit Provider Internal Medicine
DX: R10.9 Unspecified abdominal pain (principal)
CPT/HCPCS: 74176

== ENCOUNTER 2023-06-02 07:15 | Emergency (ER) | payer OTHER, SELFPAY ==
[2023-06-02 08:20] VITALS: BP 130/89; PULSE 73; RESP 18; TEMP 35.9; O2SAT 100
--- NOTE | 2023-06-02 09:26 | ED.SKABFB ---
HPI - Skin/Abscess/Foreign Bdy General Chief complaint: Skin/Abscess/Foreign Body Stated complaint: RASH,ITCHING ALL RX TO SCABIES/LICE TREATMENT? Time Seen by Provider: 06/02/23 08:02 History of Present Illness HPI narrative: Patient is a 33-year-old male who presents ER with concerns for itching. Ongoing over last week. Associated with intermittent red/ raised rash. Mainly affects the arms and legs. He has had a online doctors is it and has applied permethrin and he has done a separate lice treatment. He has seen some white areas on his skin that he was concerned were a eggs. Denies amphetamine use. He does use marijuana. No fevers or chills or sweats. No new animals in the home. No new laundry detergents or bath soaps. Patient reports he does have sensitive skin and history of eczema. No alleviating factors that he has found. Related Data Allergies Allergy/AdvReac Type Severity Reaction Status Date / Time buspirone Allergy Unknown Anxiety Verified 05/17/23 13:03 Review of Systems Review of Systems: All systems reviewed & are unremarkable except as noted in HPI and below Constitutional: Constitutional: Denies chills, Denies fatigue and Denies fever(s) Cardiovascular: Cardiovascular: Reports no additional cardiovascular complaints Respiratory: Respiratory: Reports no additional respiratory complaints Integumentary/Breasts: Skin/Breast: Reports pruritus, Denies erythema, Reports rash and Denies skin ulcer PMFSH Past Medical History Medical History Chlamydia infection Tobacco use Surgical History Surgical History No significant past surgical history Family History Family History Sibling Asthma Father Hypertension Mother Lupus Social History Social History Smoking packs per day: 1.0 Smoking cigarettes per day: 20.0 Years smoked: 11 Smoking pack-years: 11.00 Smoking status: Current every day smoker Tobacco type: cigarettes Second hand tobacco smoke exposure: No Alcohol intake: never Substance use: former Substance use type: marijuana Living arrangements: with family Occupation/Education: unemployed Gender identity (if verbalized by the patient): Male Sexual Orientation (if Verbalized by the Patient): Straight or Heterosexual Exam Narrative: GENERAL: Well-appearing, well-nourished, and in no acute distress. HEAD: Normocephalic, atraumatic. ENT: Mucous membranes moist. CHEST: Clear to auscultation. No respiratory distress. HEART: Regular rate and rhythm. Normal peripheral pulses. EXTREMITIES: Normal range of motion. No edema. SKIN: Warm, dry, no rash. No excoriations. No burrowing in the Web spaces of the fingers. NEURO: Alert and oriented x3. PSYCH: Normal mood and affect. Course Course Emergency Course: patient has pictures of his rash to his arms. It does appear to be urticarial in nature. Suspect idiopathic urticaria as he has had no new exposures. He has been counseled on irritating perfume /dyes. Will start on daily antihistamine. Vital Signs Vital signs: Vital Signs Temperature 96.6 F L 06/02/23 08:20 Pulse Rate 73 06/02/23 08:20 Respiratory Rate 18 06/02/23 08:20 Blood Pressure 130/89 06/02/23 08:20 Pulse Oximetry 100 06/02/23 08:20 Temperature 96.6 F L 06/02/23 08:20 Pulse Rate 73 06/02/23 08:20 Respiratory Rate 18 06/02/23 08:20 Blood Pressure 130/89 06/02/23 08:20 Pulse Oximetry 100 06/02/23 08:20 Discharge Plan Discharge Clinical Impression: Acute idiopathic urticaria Patient Disposition: Home, Self-Care Condition: Stable Instructions: Urticaria (ED) Additional Instructions: Begin taking a Zyrtec daily. He may take it 2 times a day if necessary. Is recommended you switch all laundry detergents and bathing so
== END 2023-06-02 09:46 | disposition home or self-care (01) ==
PROVIDERS: Emergency Provider Emergency Medicine; PCP Internal Medicine
DX: L50.1 Idiopathic urticaria (principal); F17.200 Nicotine dependence, unspecified, uncomplicated; F17.210 Nicotine dependence, cigarettes, uncomplicated
CPT/HCPCS: 99283

== ENCOUNTER 2024-10-04 18:34 | Emergency (ER) | payer SELFPAY ==
--- NOTE | 2024-10-04 18:42 | ED.SKABFB ---
HPI - Skin/Abscess/Foreign Bdy General Chief complaint: Skin/Abscess/Foreign Body Stated complaint: Poison Leana Time Seen by Provider: 10/04/24 18:49 Source: patient, RN notes reviewed and old records reviewed Mode of arrival: ambulatory Limitations: no limitations History of Present Illness HPI narrative: 34-year-old male presents to the [facility] with redness to the left anterior medial knee and lower leg. States it started as poison leana. Has been scratching it, pouring peroxide and using calamine lotion. States that over the last couple of days it has gotten sore, increased redness. No drainage noted. Has full range of motion of the knee. No swelling. Denies fevers Onset (ago): day(s) Related Data Allergies Allergy/AdvReac Type Severity Reaction Status Date / Time buspirone Allergy Unknown Anxiety Verified 10/04/24 18:49 Review of Systems Review of Systems: All systems reviewed & are unremarkable except as noted in HPI and below Constitutional: Constitutional: Reports no additional constitutional complaints ENT: Reports system reviewed and no additional complaints, except as documented Cardiovascular: Cardiovascular: Reports no additional cardiovascular complaints, Denies chest pain and Denies dyspnea Respiratory: Respiratory: Reports no additional respiratory complaints, Denies chest congestion, Denies cough and Denies dyspnea Musculoskeletal: Musculoskeletal: Reports no additional musculoskeletal complaints Integumentary/Breasts: Skin/Breast: Reports as per HPI [facility] Past Medical History Medical History Left lower quadrant abdominal pain Chlamydia infection Tobacco use Surgical History Surgical History No significant past surgical history Family History Family History Sibling Asthma Father Hypertension Mother Lupus Social History Social History Smoking packs per day: 1.0 Smoking cigarettes per day: 20.0 Years smoked: 11 Smoking pack-years: 11.00 Smoking status: Current every day smoker Tobacco type: cigarettes Second hand tobacco smoke exposure: No Alcohol intake: never Substance use: former Substance use type: marijuana Living arrangements: with family Occupation/Education: unemployed Gender identity (if verbalized by the patient): Male Sexual Orientation (if Verbalized by the Patient): Straight or Heterosexual Comments At the time of my signature, I reviewed and agree with the nursing past medical, surgical, social, and family history. There is no relevant family history pertinent to the patient complaint. Exam Const: General: cooperative, healthy appearing, comfortable, no acute distress, well developed, alert and well nourished Nutritional Appearance: well nourished Orientation/consciousness: patient oriented x3 Limitations: no limitations HENMT: Head: normal to inspection Eyes: General: appearance normal, both eyes and all related structures Alignment and Position: alignment normal Neck: Neck: normal visual inspection, full ROM, no lymphadenopathy and no meningeal signs Chest: Chest palpation & inspection: normal inspection of the chest Resp: Effort & Inspection: normal respiratory effort and able to speak in complete sentences Cardio: Rate: regular rate Skin: General skin exam: normal color and no rashes or lesions noted Other: Erythema is 17 x 9 cm at the greatest. Increased warmth, no swelling. Center is 2 by for indurated area without fluctuance, drainage. Tender to palpation. Neuro: General: patient oriented x3, gait normal, moves all extremities and no meningeal signs Cognition (Neuro): normal cognition Speech: normal speech Gait exam (Neuro): Normal gait present Extrem: General: normal to inspection, full ROM, capillary refill normal and normal gait Psych: Appearance: grossly normal and well kempt Mental Status: mental status grossly normal Speech and movement: Normal speech and movement present and Clear speech present Affect: normal affect Attitude: cooperative Course Course Level of Care: Express Care Visit Vital Signs Vital signs: Vital Signs Temperature 98.1 F 10/04/24 18:49 Pulse Rate 91 10/04/24 18:49 Respiratory Rate 16 10/04/24 18:49 Blood Pressure 124/80 10/04/24 18:49 Pulse Oximetry 99 10/04/24 18:49 Oxygen Delivery Room Air 10/04/24 18:49 Temperature 98.1 F 10/04/24 18:49 Pulse Rate 91 10/04/24 18:49 Respiratory Rate 16 10/04/24 18:49 Blood Pressure 124/80 10/04/24 18:49 Pulse Oximetry 99 10/04/24 18:49 Oxygen Delivery Room Air 10/04/24 18:49 Reviewed MDM - Skin/Abscess/Foreign Bdy MDM Narrative Medical decision making narrative: Patient sitting in exam room. Patient is nontoxic, vitals are stable. Patient presents with cellulitic changes to the left lower leg after having poison leana. Covering with an antibiotic, discussed in great detail signs and symptoms proceed to the emergency room which he verbalized understanding. Discharge instructions reviewed with patient, as well as provided in writing per nursing staff. The instructions also include specific and strict return/GO TO THE ER as well as f/u information. All questions have been answered, and the patient deny any further questions with discharge and discharge plan. Some parts of this dictation were generated by voice recognition software and may contain typographical and/or grammatical inaccuracies. Differential Diagnosis Differential diagnosis: Likely abscess of skin or subcutaneous tissue, viral exanthem, urticaria, allergic reaction to drug, cellulitis and contact dermatitis Critical Care Time Critical Care Time Critical Care Time: No Discharge Plan Discharge Clinical Impression: Dermatitis, Cellulitis Patient Disposition: Home Condition: Stable Instructions: Antibiotic Form, Cellulitis (ED), Dermatitis (ED) Additional Instructions: Wash area twice daily with warm soapy water, pat dry. Apply a very thin coat of bacitracin to the area. Take antibiotic twice daily as prescribed. Be sure to finish all of the antibiotics. Follow-up with primary care provider If symptoms get worse go directly to the emergency room Patient Language: Faroese Prescriptions: New sulfamethoxazole-trimethoprim [Bactrim DS] 800-160 mg tablet 1 tablet PO Q12H Qty: 14 0RF Follow-up/Referrals: PHYSICIAN,MEDICAL TECHNOLOGIST CHIEF [Primary Care Provider] - Time of Disposition: 19:01
[2024-10-04 18:49] VITALS: BP 124/80; PULSE 91; RESP 16; TEMP 36.7; O2SAT 99
== END 2024-10-04 19:05 | disposition home or self-care (01) ==
PROVIDERS: Emergency Provider Nurse Practitioner
DX: L30.9 Dermatitis, unspecified (principal); L03.116 Cellulitis of left lower limb; F17.210 Nicotine dependence, cigarettes, uncomplicated
CPT/HCPCS: 99213; G0463